=== PATIENT | female | born 1990 | race African-American/Black ===

== ENCOUNTER 2021-03-11 08:10 | Inpatient (IN) ==
[2021-03-11] MEDS ORDERED: LACTATED RINGERS 500 ML IV PRN (08:30)
[2021-03-11] MEDS ORDERED: LACTATED RINGERS 1,000 ML IV PRN (08:30)
[2021-03-11] MEDS ORDERED: FAMOTIDINE 20 MG/2 ML VIAL IV ONE (08:34)
[2021-03-11] MEDS ORDERED: CITRIC ACID/SODIUM CITRATE 30 ML UDCUP PO ONE (08:34)
[2021-03-11] MEDS ORDERED: OXYTOCIN/LR 20 UNIT/1,000 ML BAG IV ONE ×2 (08:37→14:14)
[2021-03-11] MEDS ORDERED: DEXTROSE 50% 25 GM/50 ML VIAL IV PRN (08:37)
[2021-03-11] MEDS ORDERED: GLUCAGON 1 MG VIAL IM PRN (08:37)
[2021-03-11] MEDS ORDERED: BETAMETH SODIUM PHOS/ACETATE 30 MG/5 ML VIAL IM ONE (08:48)
[2021-03-11] MEDS ORDERED: INSULIN REGULAR 100 UNIT/ML SUBCUT SCH (09:00)
[2021-03-11] MEDS: LABETALOL 200 MG TABLET PO SCH ×2 (09:03→16:40)
[2021-03-11 09:40] LABS: Basophils % 0.3 % (0.0-0.8); Hematocrit 33.6 VOL% (35.7-47.0); Hemoglobin 10.9 GM/DL (12.0-16.0); Immature Granulocytes % 1.1 %; Immature Granulocytes Absolute 0.08 #; Lymphocytes # 0.8 10*3/uL (1.4-4.0); Lymphocytes % 10.1 % (21.3-54.2); Mean Corpuscular HGB Conc 32.4 GM/DL (32-36); Mean Corpuscular Volume 85.9 FL (87-102); Mean Platelet Volume 9.5 FL (9.6-12.0); Monocytes % 2.1 % (1.7-12.7); Neutrophils % 86.4 % (38.7-73.9); Platelet Count 383 T/CUMM (130-400); Red Blood Count 3.91 MC/CUMM (3.8-5.5); Red Cell Distribution Width 13.8 % (9.3-17.3); White Blood Count 7.5 T/CUMM (4-12)
[2021-03-11] MEDS ORDERED: TERBUTALINE 1 MG/1 ML VIAL SUBCUT ONE (11:55)
[2021-03-11] MEDS ORDERED: TERBUTALINE 1 MG/1 ML VIAL ONE (11:55)
[2021-03-11] MEDS ORDERED: miSOPROStoL 200 MCG TABLET ONE (11:59)
[2021-03-11] MEDS ORDERED: CARBOPROST TROMETHAMINE 250 MCG/ML AMP IM ONE (11:59)
[2021-03-11] MEDS ORDERED: ceFAZolin 2,000 MG/50 ML DUPLEX IV ONE (12:00)
[2021-03-11] MEDS ORDERED: MIDAZOLAM 2 MG/2 ML VIAL ONE (12:03)
[2021-03-11] MEDS ORDERED: fentaNYL 250 MCG/5 ML VIAL ONE (12:03)
[2021-03-11 12:20] LABS: Cord Venous Blood HCO3 7.8 MMOL/L; Cord Venous Blood PO2 < 17
[2021-03-11 12:27] LABS: INR 0.9; PT Patient Result 10.3 SECS (10.5-12.0); Partial Thromboplastin Time 24.7 SECS (23.9-33.8)
[2021-03-11 12:33] LABS: Bilirubin,Urine Negative (Negative); Blood, Urine Small mg/dL (Negative); Glucose,Urine (UA) >=500 mg/dL (Negative); Ketones,Urine 20 mg/dL (Negative); Nitrite,Urine Negative (Negative); Protein,Urine 100 MG/DL; RBC,Urine 2 /HPF (0-4); Squamous Epithelial Cell,Urine Occasional /HPF (0-10); Urine Appearance CLEAR (Clear); Urine Color Straw (Yellow); Urine Urobilinogen < 2.0 EU/DL (0.2-1.0)
[2021-03-11] MEDS ORDERED: KETOROLAC 30 MG/1 ML VIAL ONE (12:56)
[2021-03-11] MEDS ORDERED: SUCCINYLCHOLINE 200 MG/10 ML VIAL ONE (12:56)
[2021-03-11] MEDS ORDERED: ONDANSETRON 4 MG/2 ML VIAL ONE (12:56)
[2021-03-11] MEDS ORDERED: SEVOFLURANE 1 UNIT/15 MINUTE INH ONE (12:56)
[2021-03-11] MEDS ORDERED: DEXAMETHASONE 4 MG/1 ML VIAL ONE (12:56)
[2021-03-11] MEDS ORDERED: propofoL 200 MG/20 ML VIAL IV ONE (12:56)
[2021-03-11] MEDS ORDERED: ROCURONIUM 50 MG/5 ML VIAL IV ONE (12:56)
[2021-03-11] MEDS ORDERED: SUGAMMADEX 200 MG/2 ML VIAL IV ONE (12:57)
[2021-03-11] MEDS ORDERED: HYDROmorphone 2 MG/1 ML VIAL ONE (13:15)
[2021-03-11 13:54] LABS: Alanine Aminotransferase 16 U/L (13-56); Albumin 1.7 G/DL (3.4-5.0); Alkaline Phosphatase 81 U/L (45-117); Aspartate Amino Transferase 19 U/L (0-37); Bilirubin,Total < 0.39 MG/DL (0.20-1.00); Blood Urea Nitrogen 15 MG/DL (7-18); Calcium 8.5 MG/DL (8.5-10.1); Carbon Dioxide 20 MMOL/L (21-32); Estimated Glom Filtration Rate 104 ML/MIN; Glucose 409 MG/DL (74-106); Osmolality,Calculated 279.7 MOS/KG (273-304); Potassium 4.3 MMOL/L (3.5-5.1); Sodium 131 MMOL/L (136-145); Total Protein 5.8 G/DL (6.4-8.2)
[2021-03-11] MEDS ORDERED: BENZOCAINE 20%/MENTHOL 0.5% SPRAY 56 GM CAN TOP PRN (14:14)
[2021-03-11] MEDS ORDERED: BISACODYL 10 MG SUPP RECTAL PRN (14:14)
[2021-03-11] MEDS ORDERED: HYDROCORTISONE 2.5% RECTAL CREAM 30 GM TUBE TOP PRN (14:14)
[2021-03-11] MEDS ORDERED: LANOLIN 50% CREAM 0.3 OZ TUBE TOP PRN (14:14)
[2021-03-11] MEDS ORDERED: oxyCODONE/ACETAMINOPHEN 5-325 MG TABLET PO PRN ×2 (14:14)
[2021-03-11] MEDS ORDERED: ACETAMINOPHEN 325 MG TABLET PO PRN (14:14)
[2021-03-11] MEDS ORDERED: DIPH/TET/ACEL PERT BOOSTER VACCINE 0.5 ML VIAL IM ONE (14:14)
[2021-03-11] MEDS ORDERED: RHO(D) IMMUNE GLOBULIN 300 MCG SYRINGE IM ONE (14:14)
[2021-03-11] MEDS ORDERED: IBUPROFEN 800 MG TABLET PO PRN (14:14)
[2021-03-11] MEDS ORDERED: MEASLES/MUMPS/RUBELLA VACCINE 0.5 ML VIAL SUBCUT ONE (14:14)
[2021-03-11] MEDS ORDERED: ONDANSETRON 4 MG/2 ML VIAL IV PRN (14:14)
[2021-03-11] MEDS ORDERED: WITCH HAZEL PADS 100/JAR TOP PRN (14:14)
[2021-03-11] MEDS ORDERED: ACETAMINOPHEN 500 MG TABLET PO PRN ×2 (14:30)
[2021-03-11] MEDS: ACETAMINOPHEN 500 MG TABLET PO SCH ×2 (15:29→22:30)
[2021-03-11] MEDS ORDERED: PHENYLEPHRINE 1 MG/10 ML SYRINGE IV ONE (15:50)
[2021-03-11] MEDS: KETOROLAC 30 MG/1 ML VIAL IV SCH ×2 (16:40→22:54)
[2021-03-11 17:54] LABS: Hematocrit 25.8 VOL% (35.7-47.0); Hemoglobin 8.6 GM/DL (12.0-16.0)
[2021-03-11] MEDS ORDERED: SODIUM CHLORIDE 0.9% 1,000 ML IV PRN (18:13)
[2021-03-11] MEDS ORDERED: AMPICILLIN/SULBACTAM 3,000 MG in SODIUM CHLORIDE 0.9% 100 ML IV ONE (18:30)
[2021-03-11] MEDS: MEPERIDINE 50 MG/1 ML VIAL IV PRN ×2 (18:41→22:48)
[2021-03-11] MEDS: INSULIN REGULAR 100 UNIT/ML SUBCUT SCH (20:17)
[2021-03-11] MEDS ORDERED: DOCUSATE SODIUM 100 MG CAPSULE PO SCH (21:00)
[2021-03-12] MEDS: LABETALOL 200 MG TABLET PO SCH ×4 (00:15→21:37)
[2021-03-12] MEDS: AMPICILLIN/SULBACTAM 1,500 MG in SODIUM CHLORIDE 0.9% 100 ML IV SCH ×4 (00:52→17:40)
[2021-03-12] MEDS: INSULIN REGULAR 100 UNIT/ML SUBCUT SCH ×4 (02:30→22:06)
[2021-03-12] MEDS: ACETAMINOPHEN 500 MG TABLET PO SCH (02:34)
[2021-03-12] MEDS ORDERED: GLUCAGON 1 MG VIAL IM PRN (03:12)
[2021-03-12] MEDS ORDERED: DEXTROSE 50% 25 GM/50 ML VIAL IV PRN (03:12)
[2021-03-12] MEDS ORDERED: diphenhydrAMINE CAP 25 MG CAPSULE PO PRN (03:34)
[2021-03-12] MEDS ORDERED: diphenhydrAMINE CAP 25 MG CAPSULE ONE (03:37)
[2021-03-12] MEDS: KETOROLAC 30 MG/1 ML VIAL IV SCH ×2 (05:32→10:29)
[2021-03-12 06:59] LABS: Basophils % 0.1 % (0.0-0.8); Hemoglobin 9.8 GM/DL (12.0-16.0); Immature Granulocytes Absolute 0.18 #; Lymphocytes # 1.1 10*3/uL (1.4-4.0); Lymphocytes % 6.1 % (21.3-54.2); Mean Corpuscular HGB Conc 33.8 GM/DL (32-36); Mean Corpuscular Volume 85.3 FL (87-102); Mean Platelet Volume 9.9 FL (9.6-12.0); Monocytes % 6.6 % (1.7-12.7); Neutrophils % 86.2 % (38.7-73.9); Platelet Count 238 T/CUMM (130-400); Red Cell Distribution Width 13.4 % (9.3-17.3); White Blood Count 18.1 T/CUMM (4-12)
[2021-03-12 07:15] LABS: Calcium 7.7 MG/DL (8.5-10.1); Osmolality,Calculated 274.4 MOS/KG (273-304); Potassium 4.2 MMOL/L (3.5-5.1)
[2021-03-12] MEDS ORDERED: INSULIN REGULAR 100 UNIT/ML SUBCUT SCH (08:00)
[2021-03-12] MEDS ORDERED: ACETAMINOPHEN/CODEINE 120-12 MG/5 ML 12.5 ML UDCUP PO PRN (08:52)
[2021-03-12] MEDS ORDERED: SIMETHICONE CHEW 80 MG TABLET PO PRN (08:52)
[2021-03-12] MEDS: MAGNESIUM HYDROXIDE SUSP 30 ML UDCUP PO PRN ×2 (09:06→21:38)
[2021-03-12] MEDS: DOCUSATE SODIUM 100 MG/10 ML UDCUP PO SCH ×2 (09:06→21:38)
[2021-03-12] MEDS: FUROSEMIDE 20 MG TABLET PO SCH ×2 (10:29→17:40)
[2021-03-12] MEDS: IBUPROFEN 100 MG/5 ML UDCUP PO PRN (15:21)
[2021-03-13] MEDS: AMPICILLIN/SULBACTAM 1,500 MG in SODIUM CHLORIDE 0.9% 100 ML IV SCH ×2 (00:38→06:48)
[2021-03-13] MEDS: IBUPROFEN 100 MG/5 ML UDCUP PO PRN ×2 (06:13→19:49)
[2021-03-13 06:50] LABS: Basophils % 0.3 % (0.0-0.8); Eosinophils # 0.1 10*3/uL (0.0-0.87); Eosinophils % 0.6 % (0.00-10.9); Hematocrit 27.8 VOL% (35.7-47.0); Hemoglobin 9.4 GM/DL (12.0-16.0); Immature Granulocytes % 1.3 %; Immature Granulocytes Absolute 0.19 #; Lymphocytes # 1.7 10*3/uL (1.4-4.0); Lymphocytes % 11.5 % (21.3-54.2); Mean Corpuscular HGB Conc 33.8 GM/DL (32-36); Mean Corpuscular Volume 86.3 FL (87-102); Mean Platelet Volume 9.1 FL (9.6-12.0); Monocytes % 7.2 % (1.7-12.7); Neutrophils % 79.1 % (38.7-73.9); Platelet Count 278 T/CUMM (130-400); Red Blood Count 3.22 MC/CUMM (3.8-5.5); Red Cell Distribution Width 13.5 % (9.3-17.3); White Blood Count 14.6 T/CUMM (4-12)
[2021-03-13 07:10] LABS: Alanine Aminotransferase 16 U/L (13-56); Albumin 1.4 G/DL (3.4-5.0); Alkaline Phosphatase 71 U/L (45-117); Aspartate Amino Transferase 24 U/L (0-37); Bilirubin,Total < 0.39 MG/DL (0.20-1.00); Blood Urea Nitrogen 23 MG/DL (7-18); Calcium 7.9 MG/DL (8.5-10.1); Carbon Dioxide 24 MMOL/L (21-32); Estimated Glom Filtration Rate 93 ML/MIN; Glucose 223 MG/DL (74-106); Potassium 4.3 MMOL/L (3.5-5.1); Sodium 136 MMOL/L (136-145); Total Protein 4.6 G/DL (6.4-8.2)
[2021-03-13] MEDS: LABETALOL 200 MG TABLET PO SCH ×4 (07:42→20:48)
[2021-03-13] MEDS: FUROSEMIDE 20 MG TABLET PO SCH (07:42)
[2021-03-13] MEDS: INSULIN REGULAR 100 UNIT/ML SUBCUT SCH ×4 (07:45→21:06)
[2021-03-13] MEDS: DOCUSATE SODIUM 100 MG/10 ML UDCUP PO SCH ×2 (08:53→20:58)
[2021-03-13] MEDS ORDERED: oxyCODONE/ACETAMINOPHEN 5-325 MG TABLET ONE (10:05)
[2021-03-13] MEDS ORDERED: oxyCODONE/ACETAMINOPHEN 5-325 MG TABLET PO PRN (10:13)
[2021-03-13] MEDS: oxyCODONE/ACETAMINOPHEN 5-325 MG TABLET PO PRN ×3 (10:13→21:50)
[2021-03-13] MEDS ORDERED: DEXTROSE 50% 25 GM/50 ML VIAL IV PRN (10:43)
[2021-03-13] MEDS ORDERED: GLUCAGON 1 MG VIAL IM PRN (10:43)
[2021-03-13] MEDS: FUROSEMIDE 40 MG/4 ML VIAL IV SCH (15:13)
[2021-03-13] MEDS: SIMETHICONE CHEW 125 MG TABLET PO PRN (20:49)
[2021-03-13] MEDS: MAGNESIUM HYDROXIDE SUSP 30 ML UDCUP PO PRN (20:49)
[2021-03-13] MEDS: AMOXICILLIN/CLAV ES 600 125 ML/BOTTLE PO SCH (21:03)
[2021-03-13 22:32] LABS: Basophils # 0.1 10*3/uL (0.0-0.2); Basophils % 0.5 % (0.0-0.8); Eosinophils # 0.3 10*3/uL (0.0-0.87); Eosinophils % 2.5 % (0.00-10.9); Hemoglobin 9.1 GM/DL (12.0-16.0); Immature Granulocytes % 0.8 %; Lymphocytes % 15.2 % (21.3-54.2); Mean Corpuscular HGB Conc 33.7 GM/DL (32-36); Mean Corpuscular Volume 85.7 FL (87-102); Mean Platelet Volume 8.8 FL (9.6-12.0); Monocytes % 7.5 % (1.7-12.7); Neutrophils % 73.5 % (38.7-73.9); Platelet Count 302 T/CUMM (130-400); Red Blood Count 3.15 MC/CUMM (3.8-5.5); Red Cell Distribution Width 13.7 % (9.3-17.3); White Blood Count 13.2 T/CUMM (4-12)
[2021-03-14] MEDS: oxyCODONE/ACETAMINOPHEN 5-325 MG TABLET PO PRN ×3 (04:36→20:43)
[2021-03-14 06:29] LABS: Alanine Aminotransferase 20 U/L (13-56); Albumin 1.5 G/DL (3.4-5.0); Alkaline Phosphatase 81 U/L (45-117); Aspartate Amino Transferase 20 U/L (0-37); Bilirubin,Total < 0.39 MG/DL (0.20-1.00); Blood Urea Nitrogen 19 MG/DL (7-18); Calcium 8.6 MG/DL (8.5-10.1); Carbon Dioxide 24 MMOL/L (21-32); Estimated Glom Filtration Rate 138 ML/MIN; Glucose 225 MG/DL (74-106); Osmolality,Calculated 283.7 MOS/KG (273-304); Potassium 4.5 MMOL/L (3.5-5.1); Sodium 138 MMOL/L (136-145); Total Protein 4.5 G/DL (6.4-8.2)
[2021-03-14] MEDS: IBUPROFEN 100 MG/5 ML UDCUP PO PRN ×2 (06:47→15:12)
[2021-03-14] MEDS: INSULIN REGULAR 100 UNIT/ML SUBCUT SCH ×4 (08:14→21:04)
[2021-03-14] MEDS: LABETALOL 200 MG TABLET PO SCH ×3 (08:15→20:42)
[2021-03-14] MEDS: AMOXICILLIN/CLAV ES 600 125 ML/BOTTLE PO SCH ×2 (08:22→21:07)
[2021-03-14] MEDS: FUROSEMIDE 40 MG/4 ML VIAL IV SCH ×2 (08:22→16:16)
[2021-03-14] MEDS: DOCUSATE SODIUM 100 MG/10 ML UDCUP PO SCH ×2 (08:31→21:07)
[2021-03-14] MEDS: MAGNESIUM HYDROXIDE SUSP 30 ML UDCUP PO PRN (20:42)
[2021-03-15] MEDS: IBUPROFEN 100 MG/5 ML UDCUP PO PRN ×2 (01:36→16:02)
[2021-03-15] MEDS: oxyCODONE/ACETAMINOPHEN 5-325 MG TABLET PO PRN ×3 (04:44→20:59)
[2021-03-15] MEDS: INSULIN REGULAR 100 UNIT/ML SUBCUT SCH ×4 (07:15→20:50)
[2021-03-15] MEDS: ONDANSETRON 4 MG/2 ML VIAL IV PRN ×2 (07:30→12:43)
[2021-03-15] MEDS: DOCUSATE SODIUM 100 MG/10 ML UDCUP PO SCH ×2 (09:34→20:55)
[2021-03-15] MEDS: AMOXICILLIN/CLAV ES 600 125 ML/BOTTLE PO SCH ×2 (09:34→20:55)
[2021-03-15] MEDS: FUROSEMIDE 40 MG/4 ML VIAL IV SCH ×2 (09:34→17:03)
[2021-03-15] MEDS: LABETALOL 200 MG TABLET PO SCH ×3 (09:48→20:56)
[2021-03-15] MEDS ORDERED: MAGNESIUM CITRATE 300 ML BOTTLE PO ONE (18:49)
[2021-03-15] MEDS: SIMETHICONE CHEW 125 MG TABLET PO PRN (18:49)
[2021-03-15] MEDS: MAGNESIUM HYDROXIDE SUSP 30 ML UDCUP PO PRN (20:57)
[2021-03-16] MEDS: FUROSEMIDE 40 MG/4 ML VIAL IV SCH (01:09)
[2021-03-16] MEDS: oxyCODONE/ACETAMINOPHEN 5-325 MG TABLET PO PRN (05:03)
[2021-03-16 06:08] LABS: Albumin 1.5 G/DL (3.4-5.0); Bilirubin,Total 0.6 MG/DL (0.20-1.00); Calcium 8.9 MG/DL (8.5-10.1); Osmolality,Calculated 279.7 MOS/KG (273-304); Potassium 4.2 MMOL/L (3.5-5.1); Total Protein 4.9 G/DL (6.4-8.2)
[2021-03-16] MEDS: INSULIN REGULAR 100 UNIT/ML SUBCUT SCH ×2 (08:43→11:37)
[2021-03-16] MEDS: AMOXICILLIN/CLAV ES 600 125 ML/BOTTLE PO SCH (09:19)
[2021-03-16] MEDS: MAGNESIUM HYDROXIDE SUSP 30 ML UDCUP PO PRN (09:20)
[2021-03-16] MEDS: LABETALOL 200 MG TABLET PO SCH (09:20)
[2021-03-16 10:40] VITALS: BP 141/80
[2021-03-16] MEDS: DOCUSATE SODIUM 100 MG/10 ML UDCUP PO SCH (11:28)
[2021-03-16] MEDS: IBUPROFEN 100 MG/5 ML UDCUP PO PRN (12:55)
== END 2021-03-16 14:47 | disposition home or self-care (01) | DRG 786 ==
LOC: N.LD 08:10 → N.OB 16:20
PROVIDERS: ADMIT Specialist; ATTEND Specialist
PROC: LDCSECT (ICD-10-PCS; 2021-03-11 16:30)